=== PATIENT | male | born 1945 | race Caucasian/White ===

== ENCOUNTER 2021-01-19 21:28 | Emergency (ER) | payer OTHER ==
[~2021-01-19] VITALS: Ht 165.1 cm; Wt 57.2 kg
--- NOTE | 2021-01-19 21:40 | NUR ---
PRESENTED TO THE ER FOR C/O DIZZINESS, -N/V, -H/A, NO FACIAL DROOP OR SLURRED SPEECH. IN BED 2 ER, ON MONITOR
[2021-01-19] MEDS ORDERED: MECLIZINE HCL 12.5 MG TABLET PO ONE (22:00)
[2021-01-19] MEDS ORDERED: MECLIZINE HCL 25 MG TABLET ONE (22:02)
[2021-01-19 22:26] LABS: CALCIUM, SERUM 8.9 mg/dL (8.5-10.1); CARBON DIOXIDE 25 mmol/L (21-32); CHLORIDE 103 mmol/L (98-107); CREATININE 1.5 mg/dL (0.6-1.3); GLUCOSE 136 mg/dL (74-106); SODIUM SERUM 136 mmol/L (136-145); UREA NITROGEN, BLOOD 24 mg/dL (7-18)
[2021-01-19 22:39] LABS: BASOPHILS % (AUTO) 0.6 % (0.0-2.0); EOSINOPHILS % (AUTO) 2.1 % (0.0-6.0); HEMATOCRIT 38 % (39-51); HEMOGLOBIN 11.7 g/dL (13.5-17.5); LYMPHOCYTES # (AUTO) 3.3 /CMM (0.8-4.8); LYMPHOCYTES % (AUTO) 42.8 % (20.0-44.0); MEAN CORPUSCULAR HGB CONC 31 g/dl (31.0-36.0); MEAN CORPUSCULAR VOLUME 70 fL (80-96); MONOCYTES # (AUTO) 0.7 /CMM (0.1-1.30); MONOCYTES % (AUTO) 8.7 % (2.0-12.0); NEUTROPHILS # (AUTO) 3.5 /CMM (1.8-8.9); NEUTROPHILS % (AUTO) 45.8 % (43.0-81.0); PLATELET COUNT (AUTO) 281 /CMM (150-450); RED BLOOD CELL COUNT(AUTO) 5.42 MIL/uL (4.5-6.0); WHITE BLOOD COUNT (AUTO) 7.6 K/uL (4.3-11.0)
[2021-01-19] MEDS ORDERED: IV NS 0.9% 1,000 ML BAG IV ONE (23:00)
--- NOTE | 2021-01-19 23:16 | NUR ---
REC'D NEG COVID RESULTS. AWARE
--- NOTE | 2021-01-20 00:02 | NUR ---
Patient does not wish to proceed with medical care recommended by Dr. LEA. Patient given information related to possible complications, up to and including , which could occur as a result of leaving the hospital at this time. Patient verbalizes understanding of risks involved due to leaving against medical advice. Patient has signed AMA form. IV removed. Catheter intact and site benign. Pressure and 4x4 applied to site. No bleeding noted.
[2021-01-20 02:06] VITALS: BP 154/79
== END 2021-01-20 00:02 | disposition left against medical advice (07) ==
LOC: ER 21:28
DX: R42 Dizziness and giddiness (principal); R94.31 Abnormal electrocardiogram [ECG] [EKG]; E86.0 Dehydration; I11.9 Hypertensive heart disease without heart failure; Z88.0 Allergy status to penicillin; Z88.6 Allergy status to analgesic agent; Z91.041 Radiographic dye allergy status; I87.8 Other specified disorders of veins; I70.0 Atherosclerosis of aorta; Z20.822 Contact with and (suspected) exposure to COVID-19
CPT/HCPCS: 36415; 70450; 71045; 80048; 84484; 85025; 87081; 87426; 93005; 99285; C9803; J8597

== ENCOUNTER 2025-07-07 00:19 | Inpatient (IN) | payer OTHER ==
[~2025-07-07] VITALS: Ht 167.6 cm; Wt 55.4 kg
[2025-07-07 00:55] LABS: PLATELET COUNT (AUTO) 290 K/uL (150-450); RED BLOOD CELL COUNT(AUTO) 5.67 MIL/uL (4.5-6.0); RED CELL DISTRIBUTION WIDTH 15.5 % (11.5-15.0); WHITE BLOOD COUNT (AUTO) 7.3 K/uL (4.3-11.0)
[2025-07-07 01:11] LABS: SERUM AMMONIA 18 umol/L (11-32)
[2025-07-07 01:13] LABS: APPEARANCE,URINE CLEAR (CLEAR); BLOOD, URINE NEGATIVE Ery/uL (NEGATIVE); LEUKOCYTE ESTERASE ,URINE NEGATIVE (NEGATIVE); NITRITE, URINE NEGATIVE (NEGATIVE); UGLUCOSE TRACE mg/dL (NEGATIVE)
[2025-07-07 01:15] LABS: ASPARTATE AMINOTRANSFERASE 22 U/L (15-37); CALCIUM, SERUM 8.5 mg/dL (8.5-10.1); CREATININE 1.7 mg/dL (0.6-1.3); SODIUM SERUM 139 mmol/L (136-145); TOTAL PROTEIN, SERUM 7.6 g/dL (6.4-8.2); UREA NITROGEN, BLOOD 25 mg/dL (7-18)
[2025-07-07 01:50] LABS: ADD URINE CULTURE NO; SQUAMOUS EPITHELIAL CELL,UR None Seen /HPF (None Seen)
[2025-07-07] MEDS ORDERED: MAGNESIUM HYDROXIDE 30 ML UDC PO PRN (05:30)
[2025-07-07] MEDS ORDERED: MAG HYDROX/AL HYDROX/SIMETH 30 ML UDC PO PRN (05:30)
[2025-07-07] MEDS ORDERED: ONDANSETRON HCL/PF 4 MG/2 ML VIAL IVP PRN (05:30)
[2025-07-07] MEDS ORDERED: ACETAMINOPHEN 325 MG TABLET PO PRN (05:30)
[2025-07-07] MEDS ORDERED: HYDROCODONE/APAP 10/325MG TABLET PO PRN (05:30)
[2025-07-07] MEDS ORDERED: Z GUARD REMEDY 4 OZ OINT TP PRN (05:30)
[2025-07-07 06:00] VITALS: BP 148/80; TEMP 97.7; O2SAT 98
[2025-07-07] MEDS: IV NS 0.9% 1,000 ML IV PRN (06:41)
[2025-07-07 08:00] VITALS: BP 179/80; TEMP 97.3; O2SAT 100
[2025-07-07] MEDS ORDERED: KERENDIA PO (11:43)
[2025-07-07] MEDS ORDERED: NIFEDIPINE PO (11:43)
[2025-07-07] MEDS ORDERED: GLIP10TA11 PO (11:43)
[2025-07-07] MEDS ORDERED: GABA300C PO (11:43)
[2025-07-07] MEDS ORDERED: CARB1TAB40 PO (11:43)
[2025-07-07] MEDS ORDERED: HYDR-4077 PO (11:43)
[2025-07-07] MEDS ORDERED: ROPI2TAB7 PO (11:43)
[2025-07-07] MEDS ORDERED: BEMP180T PO (12:16)
[2025-07-07] MEDS ORDERED: NIFE90TA61 PO (12:16)
[2025-07-07] MEDS: DOCUSATE SODIUM 100 MG CAPSULE PO SCH (14:00)
[2025-07-07 16:00] VITALS: BP 194/86; TEMP 98.4; O2SAT 97
[2025-07-07] MEDS: CARBIDOPA/LEV CR 50/200 MG 1 UDTAB.SA PO SCH (18:45)
[2025-07-07 20:00] VITALS: BP 176/81; TEMP 98.8; O2SAT 97
[2025-07-07] MEDS: GABAPENTIN 300 MG CAPSULE PO SCH (22:03)
[2025-07-08 06:17] LABS: PLATELET COUNT (AUTO) 281 K/uL (150-450); RED BLOOD CELL COUNT(AUTO) 5.44 MIL/uL (4.5-6.0); RED CELL DISTRIBUTION WIDTH 15.3 % (11.5-15.0); WHITE BLOOD COUNT (AUTO) 6.0 K/uL (4.3-11.0)
[2025-07-08 06:29] LABS: ASPARTATE AMINOTRANSFERASE 16 U/L (15-37); CALCIUM, SERUM 8.4 mg/dL (8.5-10.1); CREATININE 1.9 mg/dL (0.6-1.3); PHOSPHORUS 2.8 mg/dL (2.5-4.9); SODIUM SERUM 143 mmol/L (136-145); TOTAL PROTEIN, SERUM 7.2 g/dL (6.4-8.2); UREA NITROGEN, BLOOD 29 mg/dL (7-18)
[2025-07-08 06:33] LABS: CREATINE KINASE, TOTAL 105 U/L (39-308)
[2025-07-08 06:49] LABS: APPEARANCE,URINE CLEAR (CLEAR); BLOOD, URINE NEGATIVE Ery/uL (NEGATIVE); LEUKOCYTE ESTERASE ,URINE NEGATIVE (NEGATIVE); NITRITE, URINE NEGATIVE (NEGATIVE); UGLUCOSE TRACE mg/dL (NEGATIVE)
[2025-07-08 06:50] LABS: ADD URINE CULTURE NO; EOSINOPHIL,URINE None Seen; SQUAMOUS EPITHELIAL CELL,UR Few /HPF (None Seen)
[2025-07-08 06:51] LABS: CREATININE, URINE 58.5 MG/DL (30.0-125.0); URINE SODIUM, RANDOM 90.0 mmol/l (40-220); URINE TOTAL PROTEIN 144.5 mg/dL (0-11.9)
[2025-07-08 07:53] VITALS: BP 182/75; TEMP 97.5; O2SAT 100
[2025-07-08 08:00] VITALS: BP 182/75; TEMP 97.5; O2SAT 100
[2025-07-08] MEDS: NIFEdipine XL (30MG) 30 MG TAB PO SCH (08:05)
[2025-07-08] MEDS ORDERED: Medication Not On Formulary EA ([Kerendia] 10 MG) PO SCH (09:00)
[2025-07-08] MEDS ORDERED: BEMPEDOIC ACID 180 MG PO SCH (09:00)
[2025-07-08 09:10] VITALS: BP 100/60; TEMP 97.5; O2SAT 100
[2025-07-08] MEDS ORDERED: LORAZEPAM 0.5 MG TABLET PO PRN (09:30)
[2025-07-08] MEDS ORDERED: CT SWABBABLE VALVE TRANS SET 1 EA INFUS.SET MC ONE (11:56)
[2025-07-08] MEDS ORDERED: IV NS 0.9% 250 ML IV ONE (11:56)
[2025-07-08] MEDS ORDERED: IOHEXOL-350 100 ML VIAL IV ONE (11:56)
[2025-07-08 16:00] VITALS: BP 136/72; TEMP 98.1; O2SAT 98
[2025-07-08] MEDS: CLOPIDOGREL BISULFATE 75 MG TABLET PO SCH (16:43)
[2025-07-08 17:13] VITALS: BP 136/72; TEMP 98.1; O2SAT 98
[2025-07-08 20:00] VITALS: BP 148/72; TEMP 97.7; O2SAT 99
[2025-07-08] MEDS: SIMVASTATIN 20 MG TABLET PO SCH (21:36)
[2025-07-09 05:09] LABS: PTH, INTACT 81 pg/mL (15-65)
[2025-07-09 06:39] LABS: PLATELET COUNT (AUTO) 295 K/uL (150-450); RED BLOOD CELL COUNT(AUTO) 5.56 MIL/uL (4.5-6.0); RED CELL DISTRIBUTION WIDTH 15.6 % (11.5-15.0); WHITE BLOOD COUNT (AUTO) 10.8 K/uL (4.3-11.0)
[2025-07-09 07:19] LABS: CALCIUM, SERUM 8.7 mg/dL (8.5-10.1); CREATININE 1.9 mg/dL (0.6-1.3); PHOSPHORUS 2.7 mg/dL (2.5-4.9); SODIUM SERUM 143.0 mmol/L (136-145); UREA NITROGEN, BLOOD 37.0 mg/dL (7-18)
[2025-07-09 08:00] VITALS: BP 197/79; TEMP 97.5; O2SAT 100
[2025-07-09 08:12] VITALS: BP 180/72; TEMP 97.7; O2SAT 100
[2025-07-09] MEDS ORDERED: CLOP75TA15 PO (09:57)
[2025-07-09] MEDS ORDERED: Lorazepam PO (09:57)
[2025-07-09] MEDS ORDERED: SITA50TA PO (09:57)
[2025-07-09] MEDS ORDERED: DOCU100C36 PO (09:57)
[2025-07-09] MEDS ORDERED: SIMV-46 PO (09:57)
[2025-07-09 10:34] VITALS: BP 150/80; TEMP 97.7; O2SAT 100
[2025-07-09 17:10] VITALS: BP 136/71
== END 2025-07-09 17:36 | DRG 683 ==
LOC: EDBD 00:21 → ER 00:21 → MED 04:59
PROVIDERS: ADMIT Student in an Organized Health Care Education/Training Program; ATTEND Student in an Organized Health Care Education/Training Program
DX: N17.0 Acute kidney failure with tubular necrosis (principal); E44.1 Mild protein-calorie malnutrition; G93.40 Encephalopathy, unspecified; G20.A1 Parkinson's disease without dyskinesia, without mention of fluctuations; E11.22 Type 2 diabetes mellitus with diabetic chronic kidney disease; I12.9 Hypertensive chronic kidney disease with stage 1 through stage 4 chronic kidney disease, or unspecified chronic kidney disease; N18.9 Chronic kidney disease, unspecified; Z88.6 Allergy status to analgesic agent; Z88.0 Allergy status to penicillin; Z91.041 Radiographic dye allergy status; Z79.84 Long term (current) use of oral hypoglycemic drugs; Z79.899 Other long term (current) drug therapy; F29 Unspecified psychosis not due to a substance or known physiological condition; F03.90 Unspecified dementia, unspecified severity, without behavioral disturbance, psychotic disturbance, mood disturbance, and anxiety; D64.9 Anemia, unspecified; E11.21 Type 2 diabetes mellitus with diabetic nephropathy; F41.9 Anxiety disorder, unspecified; F19.959 Other psychoactive substance use, unspecified with psychoactive substance-induced psychotic disorder, unspecified; I65.23 Occlusion and stenosis of bilateral carotid arteries
CPT/HCPCS: 36415; 70450-TC; 70496-TC; 70498-TC; 71045-TC; 76770-TC; 80048-TC; 80053-TC; 80076-TC; 81001; 82140-TC; 82550-TC; 82570-TC; 82962-TC; 83735-TC; 83970; 84100-TC; 84155; 84165; 84300-TC; 84443-TC; 84484-TC; 85025-TC; 85027-TC; 87086-TC; 92526; 92611; 97110-TC; 97116-TC; 97530-TC; 97535-TC; A4223; G0378; J7030; J7050; Q9967